=== PATIENT | female | born 1955 | race Caucasian/White ===

== ENCOUNTER → 2016-06-09 | Day surgery (SDC) | payer OTHER ==
[~2016-06-09] MED LIST: ALBUTEROL17 GM INH; LISINOPRIL-HCTZ1 T19 PO; NAPROXEN PO
--- NOTE | ~2016-06-09 | OR ---
Unit #: [id number] #: [id number] Patient: HAMILTON PLEITEZ [id number] [address] [address] [id number] O MR#: [id number] NAME: HAMILTON PLEITEZ ROOM: Date of Procedure: 06/09/2016 Admission Date: 06/09/2016 Surgeon: Schuyler Parsons M.D. : 1955 Attending Physician: Schuyler Parsons M.D. Referring Physician: Schuyler Parsons M.D. Primary Care Physician: [facility] PROCEDURE OPERATIVE NOTE PREOPERATIVE DIAGNOSIS Screening colonoscopy. POSTOPERATIVE DIAGNOSES 1. Ascending colon lipoma. 2. Diverticular disease. 3. Internal hemorrhoids. PROCEDURE PERFORMED Colonoscopy. ANESTHESIA Monitored anesthesia care. ENDOSCOPIST Schuyler Parsons M.D. DESCRIPTION OF PROCEDURE After adequate explanation of the risks, benefits and alternatives of the procedure, an informed consent was obtained from the patient. The patient was brought to the Endoscopy Suite. Intravenous sedation was administered. The patient was placed in the left lateral position. The colonoscope was introduced into the rectum and advanced to the cecum without difficulty. Once in the cecum, the anatomic landmarks were identified very well. The ileocecal valve was examined. The appendiceal orifice was examined. The scope was slowly withdrawn with the findings as noted in the next section. Adequate mucosal visualization of the colonic mucosa was done upon slow withdrawal. The scope was slowly withdrawn into the rectum and a retroflexed view was also obtained. The scope was withdrawn. The patient tolerated the procedure very well. FINDINGS CECUM: Normal. ILEOCECAL VALVE: Normal. APPENDICIAL ORIFICE: Normal. ASCENDING COLON: Lipoma noted, otherwise unremarkable. TRANSVERSE COLON: Scattered diverticula. Unit #: [id number] #: [id number] Patient: HAMILTON PLEITEZ DESCENDING COLON: Scattered diverticula. SIGMOID COLON: Scattered diverticula. RECTUM: Nonbleeding internal hemorrhoids. Scope withdraw time is over 6 minutes. ASSESSMENT AND PLAN The patient is a 61-year-old female who presented for screening colonoscopy. Noted evidence of diverticular disease, internal hemorrhoids, and incidental lipoma. The patient was started on a high-fiber diet and followup with the office as needed. Dictated by... Soledad Sifuentes TD: 06/09/2016 16:25 JOB #: [id number] PROCEDURE OPERATIVE NOTE Page 1 of 1 X Schuyler Parsons MD X PROCEDURE OPERATIVE NOTE
== END | disposition home or self-care (01) ==
LOC: COPS 11:39
DX: Z12.11 Encounter for screening for malignant neoplasm of colon (principal); D17.5 Benign lipomatous neoplasm of intra-abdominal organs; K57.30 Diverticulosis of large intestine without perforation or abscess without bleeding; K64.8 Other hemorrhoids; I10 Essential (primary) hypertension; J45.909 Unspecified asthma, uncomplicated; Z79.899 Other long term (current) drug therapy; Z90.89 Acquired absence of other organs; Z88.2 Allergy status to sulfonamides; Z88.8 Allergy status to other drugs, medicaments and biological substances
CPT/HCPCS: J2250